=== PATIENT | male | born 1960 | race Caucasian/White ===

== ENCOUNTER → 2016-12-06 08:18 | Outpatient (CLI) | payer BC ==
[2014-11-21 21:37] VITALS: BMI 25.2
[~2016-12-06 08:18] MED LIST: ALLEGRA180 MG; ASPIRIN EC81 MG; AVODART0.5 MG; HAWTHORNE BERRY; LEXAPRO10 MG PO; LOPRESSOR25 MG PO; PRILOSEC20 MG PO; PROSCAR5 MG PO; SAW PALMETTO450 MG; THERAGRAN-M ADV1 TA1; TOPROL XL50 MG; TOPROL XL50 MG PO; ZOFRAN ODT4 MG/UDTAB
== END | disposition home or self-care (01) ==
LOC: D.US 08:18
DX: R10.9 Unspecified abdominal pain (principal)

== ENCOUNTER → 2017-01-01 08:26 | Outpatient (CLI) | payer BC ==
[2014-11-21 21:37] VITALS: BMI 25.2
== END | disposition home or self-care (01) ==
LOC: D.NM 12-20 08:30
DX: R10.9 Unspecified abdominal pain (principal); K76.0 Fatty (change of) liver, not elsewhere classified

== ENCOUNTER 2017-02-17 10:04 | Day surgery (SDC) | payer BC ==
[~2017-02-17 10:04] MED LIST changes: -ALLEGRA180 MG; +ASPIRIN EC81 M1 PO; -ASPIRIN EC81 MG; +FEXOFENADINE H180 MG PO; -SAW PALMETTO450 MG; +SAW PALMETTO450 MG PO; +THERAGRAN M [BK1 TAB PO; -THERAGRAN-M ADV1 TA1
[2017-02-17] MEDS ORDERED: LOVASTATIN10 MG PO (11:11)
[2017-02-17 11:14] VITALS: BP 147/95; BMI 25.8
[2017-02-17 12:21] LABS: CALC OSMOLALITY 277 mosm/kg (275-300); CALCIUM 8.7 mg/dL (8.5-10.1); CARBON DIOXIDE 26.6 mmol/L (21.0-32.0); CHLORIDE - SERUM 102 mmol/L (98-107); CREATININE - SERUM 0.9 mg/dL (0.6-1.3); GLUCOSE 98 mg/dL (74-106); POTASSIUM - SERUM 4.6 mmol/L (3.5-5.1); SODIUM 140 mmol/L (136-145); UREA NITROGEN 10 mg/dL (7-18); eGFR NON AFRICAN AMERICAN > 90 mL/min (90-120)
[2017-02-17 12:25] LABS: BASOPHILS 0.5 % (0-2); EOSINOPHILS 1.9 % (0-7); HEMOGLOBIN 16.3 g/dL (13.5-17.5); IMMATURE GRANULOCYTES 0.2 % (0-5); LYMPHOCYTES 43.2 % (15-50); MCH 34.8 pg (26.0-34.0); MCHC 36.2 g/dL (31.0-37.0); MCV 95.9 fL (80.0-100.0); MEAN PLATELET VOLUME 9.7 fL (7.4-10.4); MONOCYTES 10.4 % (2-11); NEUTROPHILS 43.8 % (40-80); PLATELET COUNT 224 10x3/uL (130-400); RBC 4.69 10x6/uL (4.20-6.10); RDW 12.1 % (11.5-14.5); WBC 5.8 10x3/uL (4.8-10.8)
--- NOTE | 2017-02-17 15:13 | NUR ---
IV D/C'D CATH INTACT.
--- NOTE | 2017-02-17 15:20 | NUR ---
IV D/C'D CATH INTACT. D/C INSTRUCTIONS EXPLAINED TO PT. VOICED UNDERSTANDING. COPIES OF ALL GIVEN TO PT.
--- NOTE | 2017-02-17 15:30 | NUR ---
D/C'D HOME VIA W/C TO PRIVATE CAR.
--- NOTE | 2017-02-26 14:40 | OP ---
PATIENT NAME: JENNIFER BECKER MEDICAL RECORD: [id number] :56 LOCATION:[facility] ADMISSION DATE: SURGEON: KIAH MOE DO DATE OF OPERATION: 02/17/2017 PROCEDURE: EGD with biopsies. INDICATIONS FOR PROCEDURE: Heartburn, nausea, epigastric abdominal pain. SCOPE: Olympus video gastroscope. MEDICATIONS: Propofol 200 mg IV per anesthesia. ESTIMATED BLOOD LOSS: Minimal. COMPLICATIONS: None. FINDINGS: Informed consent was given. The patient was made comfortable with the above medication. After reaching an adequate level of sedation by slow IV push, the patient was placed on his left side. The endoscope was then advanced under direct visualization through the mouth to the second portion of the duodenum. The upper, middle, and lower thirds of the esophagus appeared normal. At the GE junction, there was mild evidence of LA class A reflux-induced esophagitis. Hiatal hernia could be visualized proximally from the GE junction. The endoscope was advanced beyond this site into the stomach and retroflexed to view the cardia and fundus. On the retroflexed view, the hiatal hernia could be well appreciated. It is a sliding type hernia that measures approximately 3-4 cm in length. There were no associated ulcers or other abnormalities with this hernia. In the fundus and body of the stomach, there were a few benign appearing fundic gland polyps. The body of the stomach as well as the antrum and prepyloric region appeared normal. Random biopsies were taken to submit for histology and to rule out H. pylori. The endoscope was advanced beyond the pylorus into the duodenum where the bulb and second portion of the duodenum appeared normal. The endoscope was then withdrawn from the patient. The patient tolerated the procedure well and there were no complications. IMPRESSION: 1. LA class A reflux-induced esophagitis. 2. Moderate sized sliding hiatal hernia, which measured 3-4 cm in length. 3. Benign appearing fundic gland polyps in the fundus and body of the stomach. PLAN AND RECOMMENDATIONS: 1. Discharge home when recovery parameters are met. 2. Continue GERD diet and reflux precautions. 3. Continue current medications including omeprazole 40 mg daily. 4. Consider referral to surgery for a fundoplication regarding the hiatal hernia, which is likely increased in size since the previous examination. It is unknown whether this is contributing to any symptoms that the patient is experiencing. 5. Consider gastric emptying study, although this is likely a low yield in light of the fact that his symptoms do not worsen with eating. 6. Follow up with Dr. Coffman regarding the biliary dyskinesia and whether or not this is contributing the symptoms. 7. Notify GI clinic if symptoms worsen or failure to improve. OPERATIVE REPORT [id number] JENNIFER BECKER TRANSINT:[id number] Voice Confirmation ID: [id number] DOCUMENT ID: [id number] KIAH MOE DO at 1440 CC: [id number] DICTATION DATE: 02/17/17 1423 [employer]: 02/17/17 1443 [facility] 02/17/[address] [facility] [address] [place] [address]
== END 2017-02-17 15:43 | disposition home or self-care (01) ==
LOC: D.OPS 10:04
PROVIDERS: Anesthesiology
DX: R11.0 Nausea (principal); K44.9 Diaphragmatic hernia without obstruction or gangrene; K21.0 Gastro-esophageal reflux disease with esophagitis; K31.7 Polyp of stomach and duodenum; I10 Essential (primary) hypertension; N40.0 Benign prostatic hyperplasia without lower urinary tract symptoms

== ENCOUNTER 2017-03-26 10:14 | Day surgery (SDC) | payer BC ==
[~2017-03-26] VITALS: Ht 167.6 cm; Wt 72.7 kg
[~2017-03-26 10:14] MED LIST changes: +LOVASTATIN10 MG PO
[2017-03-26] MEDS ORDERED: CO Q-1030 MG PO (11:28)
[2017-03-26 11:33] VITALS: BP 148/100; Ht 167.6 cm; Wt 72.7 kg
[2017-03-26 12:40] LABS: CALC OSMOLALITY 279 mosm/kg (275-300); CHLORIDE - SERUM 104 mmol/L (98-107); CREATININE - SERUM 0.8 mg/dL (0.6-1.3); GLUCOSE 106 mg/dL (74-106); POTASSIUM - SERUM 4.4 mmol/L (3.5-5.1); SODIUM 141 mmol/L (136-145); UREA NITROGEN 9 mg/dL (7-18); eGFR NON AFRICAN AMERICAN > 90 mL/min (90-120)
--- NOTE | 2017-03-26 13:47 | NUR ---
1901 DISCHARGE INSTRUCTIONS COMPLETE. PT HAS NO QUESTIONS OR CONCERNS AT THIS TIME. NO PRESCRIPTIONS GIVEN. PT ESCORTED OUT BY VOLUNTEER.
--- NOTE | 2017-03-27 07:24 | OP ---
PATIENT NAME: JENNIFER BECKER MEDICAL RECORD: [id number] :56 LOCATION:[facility] ADMISSION DATE: SURGEON: KIAH MOE DO DATE OF OPERATION: 03/26/2017 PROCEDURE: Colonoscopy with polypectomy and biopsies. INDICATIONS FOR PROCEDURE: Hematochezia, change in bowel pattern, and nausea. SCOPE: Olympus video pediatric colonoscope. MEDICATIONS: Propofol 450 mg IV per anesthesia. WITHDRAWAL TIME: 10 minutes. COMPLICATIONS: None. ESTIMATED BLOOD LOSS: Less than 2 cc. FINDINGS: Informed consent was given. The patient was made comfortable with the above medication. After reaching an adequate level of sedation by slow IV push, the patient was placed on his left side. A digital rectal examination was performed and was normal. The endoscope was then advanced under direct visualization through the rectum to the cecum with visualization of the appendiceal orifice and ileocecal valve. The scope was slowly withdrawn and the mucosa was carefully examined. The prep quality was good. In the ascending colon, there were 2 polyps, which were benign-appearing and sessile. They ranged in size from 4-6 mm in diameter. They both were removed using hot forceps in 1 piece and completely retrieved. In the sigmoid colon, a third polyp was visualized. This was a benign appearing sessile polyp, which measured approximately 2-3 mm in diameter. It was removed using cold forceps in 1 piece and completely retrieved. Retroflexion was performed in the rectum with visualization of small nonbleeding internal hemorrhoids. The scope was withdrawn from the patient. The patient tolerated the procedure well and there were no complications. IMPRESSION: 1. Three benign appearing sessile polyps removed using hot forceps and cold forceps. 2. Small nonbleeding internal hemorrhoids. 3. Otherwise, normal colonoscopy. PLAN AND RECOMMENDATIONS: 1. Discharge home when recovery parameters are met. 2. Follow up biopsy specimen results. 3. No aspirin or NSAIDs for 14 days. 4. High fiber diet. 5. Continue current medications. 6. Recall colonoscopy will be dependent on results of biopsy specimens, but I anticipate this being in 3-5 years. TRANSINT:[id number] Voice Confirmation ID: [id number] DOCUMENT ID: [id number] OPERATIVE REPORT [id number] JENNIFER BECKER KIAH MOE DO at 0724 CC: [id number] DICTATION DATE: 03/26/17 1307 PAN DUMPER: 03/26/17 1324 [facility] 03/26/17 [facility] [address] [place] [id number]
== END 2017-03-26 13:48 | disposition home or self-care (01) ==
LOC: D.OPS 10:14
PROVIDERS: Anesthesiology
DX: D12.2 Benign neoplasm of ascending colon (principal); K63.5 Polyp of colon; K64.8 Other hemorrhoids; Z01.812 Encounter for preprocedural laboratory examination

== ENCOUNTER → 2018-03-30 10:06 | Outpatient (CLI) | payer BC ==
[2017-03-26 11:33] VITALS: BMI 25.8
[~2018-03-30 10:06] MED LIST changes: +CO Q-1030 MG PO
== END | disposition home or self-care (01) ==
LOC: D.RAD 10:06
DX: J01.90 Acute sinusitis, unspecified (principal)

== ENCOUNTER → 2020-01-05 08:35 | Outpatient (CLI) | payer BC ==
[2017-03-26 11:33] VITALS: BMI 25.8
== END | disposition home or self-care (01) ==
LOC: D.NM 08:30
PROVIDERS: ATTEND Family Medicine
DX: R11.0 Nausea (principal)

== ENCOUNTER → 2020-01-21 11:19 | Outpatient (CLI) | payer BC ==
[2017-03-26 11:33] VITALS: BMI 25.8
[~2020-01-21 11:19] MED LIST changes: +AVAPRO150 MG PO; +CBD SL; +COREG25 MG PO; +HYDROCODON-ACE1 EA10 PO; +METOPROLOL TART25 MG PO
== END | disposition home or self-care (01) ==
LOC: D.LAB 11:19
PROVIDERS: ATTEND Surgery
DX: Z11.59 Encounter for screening for other viral diseases (principal)

== ENCOUNTER 2020-01-25 05:35 | Day surgery (SDC) | payer BC ==
[~2020-01-25] VITALS: Ht 167.6 cm; Wt 72.1 kg
--- NOTE | ~2020-01-25 | OP ---
PATIENT NAME: JENNIFER BECKER MEDICAL RECORD: [id number] :56 LOCATION:D.[facility] ADMISSION DATE: SURGEON: ADITYA YOUNGBLOOD MD DATE OF OPERATION: 01/25/2020 PREOPERATIVE DIAGNOSES: 1. Biliary dyskinesia. 2. Peptic ulcer disease. 3. Hypertension. 4. Coronary artery disease. POSTOPERATIVE DIAGNOSES: 1. Biliary dyskinesia. 2. Peptic ulcer disease. 3. Hypertension. 4. Coronary artery disease. PROCEDURE: Laparoscopic cholecystectomy. SURGEON: Aditya Youngblood MD REPORT OF PROCEDURE: The patient's abdomen was prepped and draped in sterile fashion. A cutdown was made on the superior aspect of the umbilicus, 0 Vicryls were placed in the fascia bilaterally and the fascia was incised with 15-blade. I then bluntly entered the peritoneal cavity and placed a 12-mm Arin port. Under direct visualization, a 5-mm trocar was placed in the epigastrium and two more 5-mm trocars were placed in the right subcostal region. The gallbladder was grasped and elevated. There was no sign of any inflammatory changes. The cystic artery and cystic duct were dissected free and these were clipped proximally and distally and ligated in standard fashion. The gallbladder was taken off the liver bed using electrocautery and placed into the right upper quadrant. Any bleeding from the liver bed was then treated with electrocautery. The ports and insufflation were then removed and the gallbladder was taken out through the umbilicus. The umbilical fascia was closed with interrupted 0 Vicryls times 3. The wounds were then irrigated out with normal saline and infused with 10 mL of 0.25% Marcaine with epinephrine. The skin incisions were all closed with subcutaneous 5-0 Monocryl and dressed appropriately. COMPLICATIONS: None. CONDITION: Stable. ANESTHESIA: General endotracheal and local. BLOOD LOSS: Minimal. TRANSINT:[id number] Voice Confirmation ID: [id number] DOCUMENT ID: [id number] OPERATIVE REPORT [id number] JENNIFER BECKER ADITYA YOUNGBLOOD MD CC: BIA CLARK MD [id number] DICTATION DATE: 01/25/20 0843 [employer] CONTRO[employer]ER: 01/25/20 1747 [facility] 01/25/20 [id number] [place] [address]
[~2020-01-25 05:35] MED LIST changes: -HYDROCODON-ACE1 EA10 PO
[2020-01-25 06:12] LABS: BASOPHILS 0.8 % (0-2); EOSINOPHILS 3.9 % (0-7); HEMATOCRIT 41.1 % (42.0-54.0); HEMOGLOBIN 14.5 g/dL (13.5-17.5); LYMPHOCYTES 43.4 % (15-50); MCH 33.6 pg (26.0-34.0); MCHC 35.3 g/dL (31.0-37.0); MCV 95.1 fL (80.0-100.0); MEAN PLATELET VOLUME 9.3 fL (7.4-10.4); MONOCYTES 10.9 % (2-11); PLATELET COUNT 222 10x3/uL (130-400); RBC 4.32 10x6/uL (4.20-6.10); RDW 12.2 % (11.5-14.5); WBC 5.3 10x3/uL (4.8-10.8)
[2020-01-25 06:25] LABS: CALCIUM 9.2 mg/dL (8.5-10.1); CARBON DIOXIDE 27.1 mmol/L (21.0-32.0); CREATININE - SERUM 1.2 mg/dL (0.6-1.3); POTASSIUM - SERUM 4.1 mmol/L (3.5-5.1)
[2020-01-25 06:40] VITALS: BP 136/98; Ht 167.6 cm; Wt 72.1 kg
[2020-01-25] MEDS ORDERED: HYDROCODON-ACE1 EA10 PO (08:40)
--- NOTE | 2020-01-25 09:01 | NUR ---
PT AWAKENING, OPA REMOVED
--- NOTE | 2020-01-25 10:19 | NUR ---
DC INSTRUCTIONS GIVEN TO PT/FAMILY. STATE UNDERSTANDING. PT VOIDED. DC'D IV CATH FULLY INTACT.
--- NOTE | 2020-01-25 10:38 | NUR ---
PT LEFT UNIT VIA WC AT 1027
== END 2020-01-25 10:29 | disposition home or self-care (01) ==
LOC: D.OPS 05:35 → D.PAN 09:00 → D.OPS 10:29
PROVIDERS: ATTEND Surgery
DX: K82.8 Other specified diseases of gallbladder (principal); K27.9 Peptic ulcer, site unspecified, unspecified as acute or chronic, without hemorrhage or perforation; I10 Essential (primary) hypertension; I25.10 Atherosclerotic heart disease of native coronary artery without angina pectoris; R11.0 Nausea